=== PATIENT | female | born 1975 | race Hispanic/Latino ===

== ENCOUNTER → 2024-01-02 | Day surgery (SDC) | payer OTHER ==
[~2024-01-02] VITALS: Ht 160 cm; Wt 79.4 kg
[~2024-01-02] MED LIST: FAMOTIDINE 10MG/ML 2ML SDV IV ONE; FERROUS SULF325 M3 PO; GLYCOPYRROLATE 0.2 MG/ML IV ONE; LIDOCAINE HCL 2% 2ML SDV IV ONE; METFORMIN HYDR500 MG PO; NO; PROPOFOL 500 MG/50 ML VIAL IV ONE; SODIUM CHLORIDE 0.9% 1,000 ML IV ONE
[2024-01-02 09:05] VITALS: BP 112/78
== END | disposition home or self-care (01) | DRG 951 ==
LOC: ENDO 06:55
PROVIDERS: ATTEND Surgery
PROC: 0DJD8ZZ Inspection of Lower Intestinal Tract, Via Natural or Artificial Opening Endoscopic (ICD-10-PCS; principal; 2024-01-02)
DX: Z12.11 Encounter for screening for malignant neoplasm of colon (principal); E11.9 Type 2 diabetes mellitus without complications; Z79.84 Long term (current) use of oral hypoglycemic drugs